=== PATIENT | female | born 1940 | race Caucasian/White ===

== ENCOUNTER 2019-09-24 06:52 | Day surgery (SDC) | payer OTHER ==
[2019-09-24] MEDS ORDERED: Ringers Lactate 1,000 ML IV ONE (07:20)
[2019-09-24] MEDS ORDERED: LIDOCAINE 1% MPF 5 ML VIAL ONE (08:15)
[2019-09-24] MEDS ORDERED: PROPOFOL 200 MG/20 ML VIAL IV ONE ×2 (08:15)
--- NOTE | 2019-09-24 08:54 | ENDO RPT ---
[address], [address] COLONOSCOPY PROCEDURE REPORT EXAM DATE: 09/24/2019 PATIENT NAME: Antonieta Benavides MR #: [id number] BIRTHDATE: 1940 ATTENDING: Diony Nuñez DR STATUS: outpatient TRIM SAWYER: Jose Miguel Andrews RN, Kriss Thurston RN, [facility], and Julio Jamil [facility] INDICATIONS: The patient is a 78 yr old Female here for a colonoscopy due to colon cancer screening PROCEDURE PERFORMED: Colonoscopy with biopsy - cold polypectomy MEDICATIONS: Per Anesthesia. ESTIMATED BLOOD LOSS: None CONSENT: The patient understands the risks and benefits of the procedure and understands that these risks include, but are not limited to: sedation, allergic reaction, infection, perforation and/or bleeding. Alternative means of evaluation and treatment include, among others: physical exam, x-rays, and/or surgical intervention. The patient elects to proceed with this endoscopic procedure. DESCRIPTION OF PROCEDURE: During intra-op preparation period all mechanical medical equipment was checked for proper function. Hand hygiene and appropriate measures for infection prevention was taken. Procedure, possible complications, alternatives including, but not limited to possibility of bleeding, perforation, tear, infection, sepsis, need for surgery, need for blood transfusion, were explained to the patient. After the risks, benefits and alternatives of the procedure were thoroughly explained, Informed consent was verified, confirmed and timeout was successfully executed by the treatment team. The patient was placed in the left lateral position. A digital rectal exam was performed and revealed internal hemorrhoids. After appropriate level of anesthesia, the scope was passed. The EC-[id number] ([id number]) endoscope was introduced through the anus and advanced to the cecum, which was identified by both the appendix and ileocecal valve. The quality of the prep was good. The instrument was then slowly withdrawn as the colon was fully examined. Scope withdrawal time was 11 minutes. COLON FINDINGS: A small smooth semi-pedunculated polyp, ranging between 3-7mm in size, with a friable surface was found in the left colon. A polypectomy was performed with cold forceps. The resection was complete, the polyp tissue was completely retrieved and sent to histology. Moderate diverticulosis was noted in the sigmoid colon and left colon. No bleeding was noted from the diverticulosis. Moderate sized internal and external hemorrhoids were found. Retroflexed views revealed no abnormalities. The scope was then completely withdrawn from the patient and the procedure terminated. ADVERSE EVENTS: There were no complications. IMPRESSIONS: 1. Small semi-pedunculated polyp, ranging between 3-7mm in size, was found in the left colon; polypectomy was performed with cold forceps 2. Moderate diverticulosis was noted in the sigmoid colon and left colon 3. Moderate sized internal and external hemorrhoids RECOMMENDATIONS: 1. avoid NSAIDS for 2 weeks 2. await biopsy results 3. follow-up: office 2 week(s) 4. Monitor for any evidence of rectal bleeding. 5. yearly hemoccult starting in 4 years 6. hemorrhoidal hygiene 7. increase dietary water 8. low fiber / diverticular diet RECALL: for Colonoscopy, pending biopsy results. Diony Nuñez DR eSigned: Diony Nuñez DR 09/24/2019 8:54 AM cc: CPT CODES: 17597 Colonoscopy, flexible, proximal to splenic flexure; with removal of tumor(s), polyp(s), or other lesion(s) by snare technique ICD9 CODES: 1. 455.2 Internal hemorrhoids with other complication 2. 211.3 Benign neoplasm of colon 3. 562.11 Diverticulitis of colon (without mention of hemorrhage) PATIENT NAME: Antonieta Benavides MR#: [id number]
[2019-09-24 09:30] VITALS: TEMP 98
[2019-09-24 09:31] VITALS: BP 163/73; O2SAT 96
== END 2019-09-24 09:25 | disposition home or self-care (01) ==
LOC: OR 06:52
PROVIDERS: ATTEND Surgery
PROC: 0DBE8ZX Excision of Large Intestine, Via Natural or Artificial Opening Endoscopic, Diagnostic (ICD-10-PCS; principal; 2019-09-24 08:30)
DX: Z12.11 Encounter for screening for malignant neoplasm of colon (principal); K63.5 Polyp of colon; K57.90 Diverticulosis of intestine, part unspecified, without perforation or abscess without bleeding; K64.8 Other hemorrhoids; K64.4 Residual hemorrhoidal skin tags; Z88.4 Allergy status to anesthetic agent
CPT/HCPCS: 88305; 45380; J2704; J7120